=== PATIENT | male | born 1960 | race Caucasian/White ===

== ENCOUNTER → 2021-04-29 | Outpatient (CLI) | payer BC ==
--- NOTE | 2021-04-29 09:09 | CT ---
EXAMINATION TYPE: CT chest wo con DATE OF EXAM: 04/29/2021 COMPARISON: NONE HISTORY: Asbestos exposure, snoring, and excessive daytime sleepiness. History of hypertension and di abetes. CT DLP: 482.0 mGycm. Automated Exposure Control for Dose Reduction was Utilized. TECHNIQUE: CT scan of the thorax is performed without IV contrast. FINDINGS: LUNGS: The lungs are grossly clear, there is no concerning noncalcified parenchymal mass or nodule id entified. Incidental 5 mm central calcified right upper lung nodule or benign granuloma axial image 2 5 There is no pleural effusion or pneumothorax seen. The tracheobronchial tree is patent. MEDIASTINUM: Lack of IV contrast is noted to limit evaluation for mediastinal and especially hilar ad enopathy. There are no definitive greater than 1 cm noncalcified mediastinal lymph nodes. Calcified r ight hilar lymph nodes are present. No cardiomegaly or pericardial effusion is seen. Moderate to sev ere three-vessel coronary artery calcification is present. 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 Slight scoliotic curvature with mild multilevel spurring. IMPRESSION: 1. Evidence of old granulomatous disease. No acute pulmonary process. 2. Moderate to severe three-vessel coronary artery calcification, correlate clinically with additiona l cardiac risk factors. 3. There is 2.9 cm rim calcified ovoid lesion in the left upper quadrant favored eccentric splenic ar rogers aneurysm. Advise endovascular and/or surgical follow-up.
== END | disposition home or self-care (01) ==
LOC: RADCTMAIN 06:51
PROVIDERS: ATTEND Internal Medicine Pulmonary Disease
DX: J84.10 Pulmonary fibrosis, unspecified (principal); I25.10 Atherosclerotic heart disease of native coronary artery without angina pectoris; I10 Essential (primary) hypertension; E11.9 Type 2 diabetes mellitus without complications
CPT/HCPCS: 71250